=== PATIENT | female | born 1995 | race Hispanic/Latino ===

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

== ENCOUNTER 2017-03-21 04:04 | Inpatient (IN) ==
[2017-03-21] MEDS ORDERED: PHENERGAN IM ONE (05:11)
[2017-03-21] MEDS ORDERED: DEMEROL IM ONE (05:11)
[2017-03-21] MEDS ORDERED: PEPCID PO PRN (07:38)
[2017-03-21] MEDS ORDERED: KEFZOL 1 GM/D5W 1 GM/50 ML IVPB IV PRN (07:38)
[2017-03-21] MEDS ORDERED: REGLAN PO ONE (07:38)
[2017-03-21] MEDS ORDERED: ZOFRAN IV PRN (07:38)
[2017-03-21] MEDS ORDERED: PITOCIN 30 UNITS/LR 30 UNITS/500 ML IV.SOLN IV SCH (07:38)
[2017-03-21] MEDS ORDERED: PEPCID IV PRN (07:38)
[2017-03-21] MEDS ORDERED: PEPCID PO ONE (07:38)
[2017-03-21] MEDS ORDERED: STADOL IV PRN (07:38)
[2017-03-21] MEDS ORDERED: TYLENOL PO PRN (07:38)
[2017-03-21] MEDS ORDERED: FENTANYL-BUPIV-NS 2 MCG-0.1% 200 ML EPIDURAL PRN (07:45)
[2017-03-21] MEDS ORDERED: SODIUM CHLORIDE 0.9% INJ SCH (07:45)
[2017-03-21] MEDS: LR 1,000 ML IV SCH ×3 (08:04→14:20)
[2017-03-21 08:12] LABS: MANUAL DIFF NEEDED? NO
[2017-03-21 08:15] LABS: BASO% 0.1 % (0.0-0.8); EOS# 0.01 X1000 (0.0-0.7); EOS% 0.1 % (0.0-10.0); HEMATOCRIT 42.3 % (37.0-47.0); HEMOGLOBIN 14.8 g/dL (12.0-16.0); IMM GRAN# 0.07 X1000 (0.0-0.04); IMM GRAN% 0.4 % (0.0-0.5); LYMPH# 1.61 X1000 (1.2-3.4); LYMPH% 10.3 % (20.5-51.1); MCH 32.5 PG (27-31); MCV 92.8 FL (81-99); MONO# 1.19 X1000 (0.11-0.59); MONO% 7.6 % (1.7-9.3); MPV 12.1 FL (7.4-10.4); NEUT% 81.5 % (42.2-75.2); PLT 196 X1000 (130-400); RBC 4.56 XMIL (4.2-5.4)
[2017-03-21] MEDS ORDERED: MINERAL OIL PO ONE ×2 (08:41→14:14)
[2017-03-21] MEDS ORDERED: XYLOCAINE-MPF 1% INJ ONE ×2 (08:41→14:13)
[2017-03-21] MEDS ORDERED: CYTOTEC PO PRN (16:02)
[2017-03-21] MEDS ORDERED: BENADRYL PO PRN (16:02)
[2017-03-21] MEDS ORDERED: NORCO-5 PO PRN (16:02)
[2017-03-21] MEDS ORDERED: PERI MEDS (DERMOPLAST/NUPERCAINAL/TUCKS) MISC PRN (16:02)
[2017-03-21] MEDS ORDERED: HYDROXYZINE IM PRN (16:02)
[2017-03-21] MEDS ORDERED: BOOSTRIX VACCINE IM ONE (16:02)
[2017-03-21] MEDS ORDERED: XYLOCAINE-MPF 1% INJ PRN (16:02)
[2017-03-21] MEDS ORDERED: MINERAL OIL PO PRN (16:02)
[2017-03-21] MEDS ORDERED: PITOCIN 30 UNITS/LR 30 UNITS/500 ML IV.SOLN IV ONE (16:02)
[2017-03-21] MEDS ORDERED: BENADRYL IV PRN (16:02)
[2017-03-21] MEDS ORDERED: HYDROXYZINE PO PRN (16:02)
[2017-03-21] MEDS ORDERED: PITOCIN IM PRN (16:02)
[2017-03-21] MEDS ORDERED: AMBIEN PO PRN (16:02)
[2017-03-21] MEDS ORDERED: PITOCIN 20 UNITS/LR 20 UNITS/1,000 ML IV.SOLN IV SCH (16:02)
[2017-03-21] MEDS ORDERED: M-M-R II VACCINE SUBQ ONE (16:02)
[2017-03-21] MEDS: MOTRIN PO PRN (20:43)
[2017-03-21] MEDS: NORCO-10 PO PRN (20:43)
[2017-03-21] MEDS: PERICOLACE PO SCH (20:43)
[2017-03-21] MEDS ORDERED: EPIFOAM FOAM TOP PRN (22:39)
[2017-03-22] MEDS: NORCO-10 PO PRN ×2 (01:10→18:37)
[2017-03-22 06:17] LABS: MANUAL DIFF NEEDED? NO
[2017-03-22 06:42] LABS: BASO% 0.2 % (0.0-0.8); EOS# 0.07 X1000 (0.0-0.7); EOS% 0.5 % (0.0-10.0); HEMATOCRIT 35.2 % (37.0-47.0); HEMOGLOBIN 11.9 g/dL (12.0-16.0); IMM GRAN# 0.04 X1000 (0.0-0.04); IMM GRAN% 0.3 % (0.0-0.5); LYMPH# 2.64 X1000 (1.2-3.4); LYMPH% 18.5 % (20.5-51.1); MCH 31.8 PG (27-31); MCHC 33.8 g/dL (33-37); MCV 94.1 FL (81-99); MONO# 2.19 X1000 (0.11-0.59); MONO% 15.3 % (1.7-9.3); MPV 11.8 FL (7.4-10.4); NEUT% 65.2 % (42.2-75.2); PLT 151 X1000 (130-400); RBC 3.74 XMIL (4.2-5.4)
[2017-03-22] MEDS: PRECARE PO SCH (08:25)
[2017-03-22] MEDS: MOTRIN PO PRN (13:29)
[2017-03-22] MEDS: PERICOLACE PO SCH (20:34)
[2017-03-23] MEDS: MOTRIN PO PRN ×2 (01:42→13:11)
[2017-03-23] MEDS: NORCO-10 PO PRN ×2 (01:42→05:48)
[2017-03-23 09:03] VITALS: BP 126/82
[2017-03-23] MEDS: PRECARE PO SCH (09:44)
== END 2017-03-23 15:35 | disposition home or self-care (01) ==
LOC: P.OPLD 04:04 → P.LD 04:05 → P.WC 17:58
PROVIDERS: ADMIT Obstetrics & Gynecology; ATTEND Obstetrics & Gynecology